=== PATIENT | female | born 1980 | race Caucasian/White ===

== ENCOUNTER 2019-01-02 08:55 | Inpatient (IN) | payer MEDICAID ==
--- NOTE | 2019-01-02 09:34 | ED PDOC ---
HPI: Abdomen Time Seen by Provider: 01/02/19 09:00 Chief Complaint (Nursing): Abdominal Pain Chief Complaint (Provider): Abdominal pain History Per: Patient History/Exam Limitations: no limitations Onset/Duration Of Symptoms: Days Outside of [place] travel?: No Current Symptoms Are (Timing): Still Present Location Of Pain/Discomfort: Diffuse, LLQ Associated Symptoms: Fever, Nausea, Vomiting, Loss Of Appetite. denies: Urinary Symptoms Additional History Per: Patient Additional Complaint(s): 38yo female, otherwise well, comes to ER reporting left lower abdominal pain and discomfort with associated nausea and vomiting. Patient reports subjective fevers as well and states she has been PO intolerant x 3 days. She otherwise denies any dysuria or hematuria, no complaints of back pain as well. Patient has not taken any medications at home to alleviate her symptoms. PMD: Dr. Ivan ABDALLA Abnormal Vaginal Bleeding: No Past Medical History Reviewed: Historical Data, Nursing Documentation, Vital Signs Vital Signs: Last Vital Signs Temp 99.1 F 01/02/19 09:05 Pulse 111 H 01/02/19 09:05 Resp 20 01/02/19 09:05 BP 107/65 01/02/19 09:05 Pulse Ox 94 L 01/02/19 09:05 - Medical History PMH: Anemia (Pt reports) Denies: Chronic Kidney Disease - Surgical History Surgical History: Denies: Back Surgery - Family History Family History: States: Unknown Family Hx - Social History Current smoker - smoking cessation education provided: Yes (1 pack per week) Alcohol: Occasional Drugs: Denies - Immunization History Hx Tetanus Toxoid Vaccination: Yes Hx Influenza Vaccination: Yes Hx Pneumococcal Vaccination: Yes - Home Medications Home Medications: Ambulatory Orders Medication Instructions Recorded No Known Home Med 01/02/19 - Allergies Allergies/Adverse Reactions: Allergies Allergy/AdvReac Type Severity Reaction Status Date / Time No Known Allergies Allergy Verified 01/03/15 21:46 Review of Systems ROS Statement: Except As Marked, All Systems Reviewed And Found Negative Constitutional: Positive for: Fever (subjective) ENT: Positive for: Throat Pain Gastrointestinal: Positive for: Nausea, Vomiting, Abdominal Pain Genitourinary Female: Negative for: Dysuria, Hematuria Musculoskeletal: Negative for: Back Pain Physical Exam - Reviewed Nursing Documentation Reviewed: Yes Vital Signs Reviewed: Yes - Physical Exam Appears: Positive for: No Acute Distress, Uncomfortable Head Exam: Positive for: ATRAUMATIC, NORMAL INSPECTION, NORMOCEPHALIC Skin: Positive for: Normal Color Eye Exam: Positive for: EOMI, PERRL ENT: Positive for: Normal ENT Inspection Neck: Positive for: Supple Cardiovascular/Chest: Positive for: Regular Rate, Rhythm Respiratory: Positive for: Normal Breath Sounds. Negative for: Respiratory Distress Gastrointestinal/Abdominal: Positive for: Bowel Sounds, Soft, Tenderness (mild and diffuse). Negative for: Mass, Distended, Guarding, Rebound Back: Positive for: Normal Inspection. Negative for: L CVA Tenderness, R CVA Tenderness Extremity: Positive for: Normal ROM Neurological/Psych: Positive for: Awake, Alert, Oriented (x 3) - Laboratory Results Result Diagrams: 01/03/19 06:05 01/03/19 06:05 - ECG O2 Sat by Pulse Oximetry: 94 (RA) Medical Decision Making Medical Decision Makinyo female with abdominal discomfort, vomiting, subjective fevers Plan: -- Labs -- UA -- IV Fluids -- CT Abdomen/Pelvis w/ contrast -- Zofran 4mg IV -- Pepcid 20mg IV 1150 Labs reviewed, patient slightly anemic and hypokalemic Urinalysis indicates a UTI 1226 FINDINGS: LOWER THORAX: Right basilar atelectasis. No visible pleural effusion or pneumothorax. Small hiatal hernia/distal esophageal wall thickening. LIVER: Unremarkable. GALLBLADDER AND BILE DUCTS: Unremarkable. PANCREAS: Unremarkable. SPLEEN: Unremarkable. ADRENALS: Unremarkable. KIDNEYS AND URETERS: The kidneys enhance symmetrically. Mild fullness of the left ureter with proximal enhancement; correlate clinically for possibility of infection. Obstructing calculus is not identified. Mild left perinephric stranding/fluid. The right kidney appears unremarkable. BLADDER: The urinary bladder appears unremarkable. REPRODUCTIVE: Uterus is present. APPENDIX: The appendix appears within normal limits of caliber. No secondary signs of acute appendicitis. BOWEL: The stomach is nondistended. The bowel loops appear within normal limits of caliber without evidence of intestinal obstruction. PERITONEUM: No significant free fluid. No definite free air. LYMPH NODES: No bulky lymphadenopathy identified. VASCULATURE: No aortic aneurysm. No atherosclerotic calcification or mural plaque present. BONES: No acute osseous abnormality is detected. OTHER FINDINGS: None. IMPRESSION: Mild fullness of the left ureter with proximal enhancement; correlate clinically for possibility of infection. Obstructing calculus is not identified. Mild left perinephric stranding/fluid. Additional findings as above. 1250 Pyelonephritis vs kidney stones. Will give IV and antibiotics. 1443 Patient reports feeling subjective fever. temp now elevated, fluids and tylenol ordered. vbg ordered. lactate is normal Will admit patient for pyelonephritis. pt aware and agreeable pt to be admitted to medical service. Scribe Attestation: Documented by Teresa Israel, acting as a scribe for Sandra Pinto MD. Provider Scribe Attestation: All medical record entries made by the Scribe were at my direction and personally dictated by me. I have reviewed the chart and agree that the record accurately reflects my personal performance of the history, physical exam, medi naina decision making, and the department course for this patient. I have also personally directed, reviewed, and agree with the discharge instructions and disposition. Disposition - Clinical Impression Clinical Impression: Pyelonephritis - Patient ED Disposition Is Patient to be Admitted: Yes Counseled Patient/Family Regarding: Studies Performed, Diagnosis - Disposition Disposition Time: 14:35 Condition: STABLE
[2019-01-02] MEDS ORDERED: Iohexol 240 (50 ml) PO ONE (09:44)
[2019-01-02] MEDS ORDERED: Sodium Chloride 0.9% 1,000 ML IV STA ×2 (09:45→15:18)
[2019-01-02] MEDS ORDERED: Iohexol 240 (50 ml) ONE (09:52)
[2019-01-02 10:43] LABS: SQUAMOUS EPITHIAL 16 /hpf (0-5); URINE BACTERIA MOD (<OCC); URINE BILIRUBIN NEGATIVE (NEGATIVE); URINE BLOOD MODERATE (NEGATIVE); URINE CLARITY CLOUDY (Clear); URINE COLOR YELLOW (YELLOW); URINE GLUCOSE (UA) NEG (NEGATIVE); URINE LEUKOCYTE ESTERASE MOD Leu/uL (Negative); URINE PROTEIN 100 mg/dL (NEGATIVE); URINE UROBILINOGEN 0.2-1.0 mg/dL (0.2-1.0)
[2019-01-02 10:45] LABS: BASO % 0.2 % (0.0-2.0); EOS % 0.1 % (0.0-4.0); HEMOGLOBIN 10.8 g/dL (12.0-16.0); LYMPH # 1.1 K/uL (1.0-4.3); LYMPH % 12.2 % (20.0-40.0); MEAN CELL VOLUME 79.7 fl (81.0-99.0); MEAN CORPUSCULAR HEMOGLOBIN 26.4 pg (27.0-31.0); MEAN CORPUSCULAR HGB CONC 33.2 g/dL (33.0-37.0); MEAN PLATELET VOLUME 7.8 fl (7.2-11.7); MONO % 10.2 % (0.0-10.0); NEUT # 7.3 K/uL (1.8-7.0); NEUT % 77.3 % (50.0-75.0); NRBC % 0.1 % (0.0-0.0); RBC 4.07 Mil/uL (3.80-5.20); RED CELL DISTRIBUTION WIDTH 16.2 % (11.5-14.5); WHITE BLOOD COUNT 9.4 K/uL (4.8-10.8)
[2019-01-02 10:50] LABS: ALBUMIN 3.9 g/dL (3.5-5.0); ALT/SGPT 22 U/L (9-52); AST/SGOT 26 U/L (14-36); BLOOD UREA NITROGEN 10 mg/dl (7-17); CALCIUM 8.3 mg/dL (8.4-10.2); GFR NON-AFRICAN AMERICAN > 60; LIPASE 65 U/L (23-300)
[2019-01-02] MEDS ORDERED: Potassium Chloride 20 mEq ER Tab PO ONE ×2 (11:50→12:51)
--- NOTE | 2019-01-02 12:29 | CT ---
PROCEDURE: CT Abdomen and Pelvis with oral and IV contrast. HISTORY: llq abd pain COMPARISON: Transvaginal pelvic ultrasound performed 01/03/15 TECHNIQUE: Contiguous axial images of the abdomen and pelvis. Oral and IV contrast was administered. Coronal and Sagittal reformats generated and reviewed. Contrast dose: 95 cc Omnipaque 300 IV Radiation dose: Total exam DLP = 849.44 mGy-cm. This CT exam was performed using one or more of the following dose reduction techniques: Automated exposure control, adjustment of the mA and/or kV according to patient size, and/or use of iterative reconstruction technique. FINDINGS: LOWER THORAX: Right basilar atelectasis. No visible pleural effusion or pneumothorax. Small hiatal hernia/distal esophageal wall thickening. LIVER: Unremarkable. GALLBLADDER AND BILE DUCTS: Unremarkable. PANCREAS: Unremarkable. SPLEEN: Unremarkable. ADRENALS: Unremarkable. KIDNEYS AND URETERS: The kidneys enhance symmetrically. Mild fullness of the left ureter with proximal enhancement; correlate clinically for possibility of infection. Obstructing calculus is not identified. Mild left perinephric stranding/fluid. The right kidney appears unremarkable. BLADDER: The urinary bladder appears unremarkable. REPRODUCTIVE: Uterus is present. APPENDIX: The appendix appears within normal limits of caliber. No secondary signs of acute appendicitis. BOWEL: The stomach is nondistended. The bowel loops appear within normal limits of caliber without evidence of intestinal obstruction. PERITONEUM: No significant free fluid. No definite free air. LYMPH NODES: No bulky lymphadenopathy identified. VASCULATURE: No aortic aneurysm. No atherosclerotic calcification or mural plaque present. BONES: No acute osseous abnormality is detected. OTHER FINDINGS: None. IMPRESSION: Mild fullness of the left ureter with proximal enhancement; correlate clinically for possibility of infection. Obstructing calculus is not identified. Mild left perinephric stranding/fluid. Additional findings as above.
[2019-01-02] MEDS ORDERED: cefTRIAXone (Rocephin) 1 gm Inj ONE (12:51)
[2019-01-02 15:55] LABS: VENOUS BLOOD GAS BASE EXCESS 2.4 mmol/L (0.0-2.0); VENOUS BLOOD GAS PCO2 38 mmHg (40-60); VENOUS BLOOD GAS PO2 24 mm/Hg (30-55); VENOUS BLOOD PH 7.45 (7.32-7.43)
[2019-01-02] MEDS: Sodium Chloride 0.9% 1,000 ML IV SCH (22:14)
[2019-01-03 03:35] VITALS: BMI 29.6
[2019-01-03 06:16] LABS: BASO % 0.2 % (0.0-2.0); EOS % 0.4 % (0.0-4.0); LYMPH # 0.9 K/uL (1.0-4.3); LYMPH % 13.2 % (20.0-40.0); MEAN CELL VOLUME 80.6 fl (81.0-99.0); MEAN CORPUSCULAR HEMOGLOBIN 26.6 pg (27.0-31.0); MEAN PLATELET VOLUME 7.7 fl (7.2-11.7); MONO # 0.8 K/uL (0.0-0.8); MONO % 11.8 % (0.0-10.0); NEUT # 5.3 K/uL (1.8-7.0); NEUT % 74.4 % (50.0-75.0); NRBC % 0.1 % (0.0-0.0); RBC 3.38 Mil/uL (3.80-5.20); RED CELL DISTRIBUTION WIDTH 15.7 % (11.5-14.5); WHITE BLOOD COUNT 7.1 K/uL (4.8-10.8)
[2019-01-03 06:25] LABS: ALT/SGPT 21 U/L (9-52); AST/SGOT 23 U/L (14-36); BLOOD UREA NITROGEN 9 mg/dl (7-17); CALCIUM 7.4 mg/dL (8.4-10.2); GFR NON-AFRICAN AMERICAN > 60; HDL CHOLESTEROL 20 MG/DL (30-70)
[2019-01-03 06:35] LABS: LDL CHOLESTEROL 61 mg/dL (0-129)
[2019-01-03] MEDS ORDERED: Potassium Chloride 20 mEq/15 ml LIQ UD PO ONE (08:40)
--- NOTE | 2019-01-03 09:44 | CP.PCM.HP ---
History of Present Illness - History of Present Illness History of Present Illness: 38 y/o F presented yesterday to ED complaining of left lower back pain, LLQ abdominal pain, nausea and vomiting. Today, pt was seen and examined by bedside with Dr Love. Pt still complains of lower back pain. Pain is described dull, was severe yesterday, radiates to LLQ area. Pt has decreased appetite and reports eating a bits of food and liquid. Today, pt denies nausea, vomiting, chest pain, chills, dysuria, vaginal discharge, vaginal bleeding, rash or peripheral edema. LMP 1 week ago. Menses are regular with normal bleeding. --AT ED, pt presented a fever of 103.[address] Abdomen/Pelvis: Mild fullness of the left ureter with proximal enhancement; correlate clinically for possibility of infection. Obstructing calculus is not identified. Mild left perinephric stranding/fluid. PMD: Dr Love NKDA Medications: none PMHx: denied PSHx: Unspecific spine surgery. SHx: Pt smokes intermittently. Denies alcohol or rec drugs. Present on Admission - Present on Admission Any Indicators Present on Admission: No Review of Systems - Constitutional Constitutional: absent: Excessive Sweating - EENT Nose/Mouth/Throat: absent: Nasal Congestion, Sore Throat, Neck Pain, Neck Mass - Cardiovascular Cardiovascular: absent: Chest Pain, Dyspnea, Edema, Orthopnea, Palpitations - Respiratory Respiratory: absent: Cough, Dyspnea - Gastrointestinal Gastrointestinal: Abdominal Pain. absent: Nausea, Odynophagia, Temesmus, Vomiting - Genitourinary Genitourinary: absent: Dysuria, Hematuria, Nocturia - Reproductive: Female Reproductive:Female: absent: Amenorrhea, Dysmenorrhea, Vaginal Discharge Past Patient History - Past Medical History & Family History Past Medical History?: Yes - Past Social History Alcohol: Occasional Drugs: Denies - CARDIAC Hx Cardiac Disorders: No - PULMONARY Hx Respiratory Disorders: No - NEUROLOGICAL Hx Neurological Disorder: No - HEENT Hx HEENT Problems: No - RENAL Hx Chronic Kidney Disease: No - ENDOCRINE/METABOLIC Hx Endocrine Disorders: No - HEMATOLOGICAL/ONCOLOGICAL Hx Anemia: Yes (Pt reports) - INTEGUMENTARY Hx Dermatological Problems: No - MUSCULOSKELETAL/RHEUMATOLOGICAL Hx Musculoskeletal Disorders: No Hx Falls: No - GASTROINTESTINAL Hx Gastrointestinal Disorders: No - GENITOURINARY/GYNECOLOGICAL Hx Genitourinary Disorders: No - PSYCHIATRIC Hx Psychophysiologic Disorder: No Hx Substance Use: No - SURGICAL HISTORY Hx Surgeries: Yes Other/Comment: d and c in junhe s/p miscarriage - ANESTHESIA Hx Anesthesia: Yes Hx Anesthesia Reactions: No Meds Allergies/Adverse Reactions: Allergies Allergy/AdvReac Type Severity Reaction Status Date / Time No Known Allergies Allergy Verified 01/03/15 21:46 Physical Exam - Constitutional Appears: No Acute Distress - Head Exam Head Exam: ATRAUMATIC, NORMAL INSPECTION - Eye Exam Eye Exam: EOMI, Normal appearance - ENT Exam ENT Exam: Mucous Membranes Moist - Neck Exam Neck exam: Positive for: Full Rom, Normal Inspection. Negative for: Meningismus - Respiratory Exam Respiratory Exam: Clear to Auscultation Bilateral, NORMAL BREATHING PATTERN - Cardiovascular Exam Cardiovascular Exam: REGULAR RHYTHM, +S1, +S2 - GI/Abdominal Exam GI & Abdominal Exam: Normal Bowel Sounds, Soft, Tenderness (LLQ). absent: Distended, Guarding, Rebound - Extremities Exam Extremities exam: Positive for: full ROM, normal inspection. Negative for: calf tenderness, pedal edema - Back Exam Back exam: CVA tenderness (L). absent: CVA tenderness (R) - Neurological Exam Neurological exam: Alert, Oriented x3 Results - Vital Signs Recent Vital Signs: Last Vital Signs Temp 98.0 F 01/03/19 09:13 Pulse 88 01/03/19 09:13 Resp 20 01/03/19 09:13 BP 115/77 01/03/19 09:13 Pulse Ox 94 L 01/03/19 09:13 - Labs Result Diagrams: 01/03/19 06:05 01/03/19 06:05 Labs: Laboratory Results - last 24 hr 01/02/19 01/02/19 01/02/19 10:20 10:20 10:20 WBC 9.4 RBC 4.07 Hgb 10.8 L Hct 32.4 L MCV 79.7 L D MCH 26.4 L MCHC 33.2 RDW 16.2 H Plt Count 229 MPV 7.8 Neut % (Auto) 77.3 H Lymph % (Auto) 12.2 L [place] % (Auto) 10.2 H Eos % (Auto) 0.1 Baso % (Auto) 0.2 Neut # (Auto) 7.3 H Lymph # (Auto) 1.1 [place] # (Auto) 1.0 H Eos # (Auto) 0.0 Baso # (Auto) 0.0 pO2 VBG pH VBG pCO2 VBG HCO3 VBG Total CO2 VBG O2 Sat (Calc) VBG Base Excess VBG Potassium Glucose Lactate FiO2 Sodium 137 Potassium 3.3 L Chloride 98 Carbon Dioxide 26 Anion Gap 16 BUN 10 Creatinine 1.0 Est GFR ( Amer) > 60 Est GFR (Non-Af Amer) > 60 Random Glucose 109 H Calcium 8.3 L Phosphorus Magnesium Total Bilirubin 0.7 AST 26 ALT 22 Alkaline Phosphatase 49 Total Protein 7.6 Albumin 3.9 Globulin 3.7 Albumin/Globulin Ratio 1.0 Triglycerides Cholesterol LDL Cholesterol Direct HDL Cholesterol Lipase 65 Vitamin B12 TSH 3rd Generation Venous Blood Potassium Urine Color Yellow Urine Clarity Cloudy Urine pH 6.0 Ur Specific [place] 1.014 Urine Protein 100 Urine Glucose (UA) Neg Urine Ketones 80 Urine Blood Moderate Urine Nitrate Positive H Urine Bilirubin Negative Urine Urobilinogen 0.2-1.0 Ur Leukocyte Esterase Mod Urine RBC (Auto) 40 H Urine Microscopic WBC 328 H Ur Squamous Epith Cells 16 H Urine Bacteria Mod H 01/02/19 01/03/19 01/03/19 15:49 06:05 06:05 WBC 7.1 RBC 3.38 L Hgb 9.0 L Hct 27.3 L MCV 80.6 L MCH 26.6 L MCHC 33.0 RDW 15.7 H Plt Count 193 MPV 7.7 Neut % (Auto) 74.4 Lymph % (Auto) 13.2 L [place] % (Auto) 11.8 H Eos % (Auto) 0.4 Baso % (Auto) 0.2 Neut # (Auto) 5.3 Lymph # (Auto) 0.9 L [place] # (Auto) 0.8 Eos # (Auto) 0.0 Baso # (Auto) 0.0 pO2 24 L VBG pH 7.45 H VBG pCO2 38 L VBG HCO3 25.4 VBG Total CO2 27.6 VBG O2 Sat (Calc) 64.5 VBG Base Excess 2.4 H VBG Potassium 3.2 L Glucose 105 Lactate 1.2 FiO2 21.0 Sodium 135.0 138 Potassium 3.1 L Chloride 101.0 105 Carbon Dioxide 24 Anion Gap 12 BUN 9 Creatinine 0.8 Est GFR ( Amer) > 60 Est GFR (Non-Af Amer) > 60 Random Glucose 103 Calcium 7.4 L Phosphorus Magnesium Total Bilirubin 0.5 AST 23 ALT 21 Alkaline Phosphatase 42 Total Protein 6.2 L Albumin 3.0 L D Globulin 3.2 Albumin/Globulin Ratio 1.0 Triglycerides 101 Cholesterol 105 LDL Cholesterol Direct 61 HDL Cholesterol 20 L Lipase Vitamin B12 400 TSH 3rd Generation 0.67 Venous Blood Potassium 3.2 L Urine Color Urine Clarity Urine pH Ur Specific [place] Urine Protein Urine Glucose (UA) Urine Ketones Urine Blood Urine Nitrate Urine Bilirubin Urine Urobilinogen Ur Leukocyte Esterase Urine RBC (Auto) Urine Microscopic WBC Ur Squamous Epith Cells Urine Bacteria 01/03/19 08:45 WBC RBC Hgb Hct MCV MCH MCHC RDW Plt Count MPV Neut % (Auto) Lymph % (Auto) [place] % (Auto) Eos % (Auto) Baso % (Auto) Neut # (Auto) Lymph # (Auto) [place] # (Auto) Eos # (Auto) Baso # (Auto) pO2 VBG pH VBG pCO2 VBG HCO3 VBG Total CO2 VBG O2 Sat (Calc) VBG Base Excess VBG Potassium Glucose Lactate FiO2 Sodium Potassium Chloride Carbon Dioxide Anion Gap BUN Creatinine Est GFR ( Amer) Est GFR (Non-Af Amer) Random Glucose Calcium Phosphorus 1.9 L Magnesium 2.2 Total Bilirubin AST ALT Alkaline Phosphatase Total Protein Albumin Globulin Albumin/Globulin Ratio Triglycerides Cholesterol LDL Cholesterol Direct HDL Cholesterol Lipase Vitamin B12 TSH 3rd Generation Venous Blood Potassium Urine Color Urine Clarity Urine pH Ur Specific [place] Urine Protein Urine Glucose (UA) Urine Ketones Urine Blood Urine Nitrate Urine Bilirubin Urine Urobilinogen Ur Leukocyte Esterase Urine RBC (Auto) Urine Microscopic WBC Ur Squamous Epith Cells Urine Bacteria Assessment & Plan - Assessment and Plan (Free Text) Assessment: 38 y/o F with NO pertinent PMHx admitted for evaluation and management of UTI, possible pyelonephritis. --CT Abdomen/Pelvis: Mild fullness of the left ureter with proximal enhancement; correlate clinically for possibility of infection. Obstructing calculus is not identified. Mild left perinephric stranding/fluid. PLAN: >Sepsis due to acute UTI --Fever and tachycardia on presentation, U/A concordant with UTI. --No leukocytosis --Renal US ordered to r/o pyelonephritis. --IV Toradol for pain management. --Continue with daily IV Rocephin --F/U Blood and Urine Cx. --Regular diet. >Nausea/Vomiting --No nausea/vomiting this morning. --PRN Zofran --IVP Famotidine daily. >DVT Prophylaxis --SCD's for now. --Ambulation encouraged. --At low risk for DVT. Case discussed with Dr Ivan Dawkins PGY-2 - Date & Time Date: 01/03/19 Time: 09:45
[2019-01-03] MEDS: Sodium Chloride 0.9% 1,000 ML IV SCH (11:35)
--- NOTE | 2019-01-03 16:04 | US ---
Date of service: 01/03/2019 PROCEDURE: Ultrasound of the Kidneys HISTORY: R/O pyelonephritis COMPARISON: None available. TECHNIQUE: Sonogram of the kidneys. FINDINGS: RIGHT KIDNEY: Measures: 12.1 cm. Normal in size, contour and echogenicity. No stone, solid mass lesion or hydronephrosis visualized. LEFT KIDNEY: Measures: 11.6 cm. Normal in size, contour and echogenicity. No stone, solid mass lesion or hydronephrosis visualized. OTHER FINDINGS: None. IMPRESSION: Unremarkable renal sonogram.
[2019-01-04 06:48] LABS: HEMOGLOBIN 9.3 g/dL (12.0-16.0); MEAN CELL VOLUME 80.2 fl (81.0-99.0); MEAN CORPUSCULAR HEMOGLOBIN 25.7 pg (27.0-31.0); RBC 3.61 Mil/uL (3.80-5.20); RED CELL DISTRIBUTION WIDTH 16.4 % (11.5-14.5); WHITE BLOOD COUNT 4.6 K/uL (4.8-10.8)
[2019-01-04 07:34] LABS: ALBUMIN 3.1 g/dL (3.5-5.0); ALT/SGPT 24 U/L (9-52); AST/SGOT 26 U/L (14-36); BLOOD UREA NITROGEN 7 mg/dl (7-17); CALCIUM 7.9 mg/dL (8.4-10.2); GFR NON-AFRICAN AMERICAN > 60
[2019-01-04] MEDS ORDERED: Potassium Chloride 20 mEq/15 ml LIQ UD PO ONE ×2 (08:20→16:10)
[2019-01-04] MEDS ORDERED: Potassium Chloride 20 mEq ER Tab PO ONE ×2 (08:22→17:08)
[2019-01-04] MEDS ORDERED: Potassium Chloride 20 mEq 100 ML IVPB ONE ×2 (08:24→16:18)
[2019-01-04] MEDS: Potassium & Sodium Phosphate PO SCH ×2 (09:31→16:00)
[2019-01-04] MEDS: Potassium Chloride 20 mEq 100 ML IVPB SCH ×2 (11:18→13:25)
--- NOTE | 2019-01-04 12:28 | CP.PCM.PN ---
<Bear Dawkins - Last Filed: 01/04/19 12:26> Subjective - Date & Time of Evaluation Date of Evaluation: 01/04/19 Time of Evaluation: 07:10 - Subjective Subjective: 38 y/o F was seen and examined by bedside with Dr Love. Pt reports that left lower back pain is better, denies nausea or vomiting; however, ot reports lack of appetite and not eating much. Pt had a fever overnight. --Unremarkable renal US. Objective - Vital Signs/Intake and Output Vital Signs (last 24 hours): Temp Pulse Resp BP Pulse Ox 98.4 F 74 20 105/70 93 L 01/04/19 08:22 01/04/19 08:22 01/04/19 08:22 01/04/19 08:22 01/04/19 08:22 - Medications Medications: Current Medications Acetaminophen (Tylenol 325mg Tab) 650 mg PO Q6 PRN PRN Reason: Fever >100.4 F Last Admin: 01/03/19 18:05 Dose: 650 mg Acetaminophen (Tylenol 325mg Tab) 650 mg PO Q6 PRN PRN Reason: Pain, Mild (1-3) Last Admin: 01/04/19 05:58 Dose: 650 mg Famotidine (Pepcid) 20 mg IVP DAILY [facility] Last Admin: 01/03/19 11:31 Dose: 20 mg Ceftriaxone Sodium 1 gm/ (Sodium Chloride) 100 mls @ 100 mls/hr IVPB DAILY [facility]; Protocol Last Admin: 01/04/19 08:40 Dose: 100 mls/hr Potassium Chloride (Potassium Chloride 20 Meq/100 Ml) 100 mls @ 50 mls/hr IVPB Q2 [facility] Stop: 01/04/19 13:59 Last Admin: 01/04/19 11:18 Dose: 50 mls/hr Ketorolac Tromethamine (Toradol) 30 mg IVP Q6 PRN PRN Reason: Pain, severe (8-10) Ondansetron HCl (Zofran Inj) 4 mg IVP TID PRN PRN Reason: Nausea/Vomiting Last Admin: 01/03/19 11:38 Dose: 4 mg Potassium Phos/Sodium Phos (Neutra-Phos) 1 pkt PO BID [facility] Last Admin: 01/04/19 09:31 Dose: 1 pkt - Labs Labs: 01/04/19 06:10 01/04/19 06:10 - Constitutional Appears: No Acute Distress - Head Exam Head Exam: ATRAUMATIC, NORMAL INSPECTION - Eye Exam Eye Exam: EOMI, Normal appearance - ENT Exam ENT Exam: Mucous Membranes Moist - Neck Exam Neck Exam: Full ROM, Normal Inspection. absent: Meningismus - Respiratory Exam Respiratory Exam: NORMAL BREATHING PATTERN. absent: Rhonchi, Wheezes, Respiratory Distress, Stridor - Cardiovascular Exam Cardiovascular Exam: REGULAR RHYTHM, +S1, +S2 - GI/Abdominal Exam GI & Abdominal Exam: Soft, Normal Bowel Sounds. absent: Guarding, Rigid, Tenderness - Extremities Exam Extremities Exam: Full ROM, Normal Inspection. absent: Calf Tenderness, Pedal Edema - Back Exam Back Exam: CVA tenderness (L) (very mild). absent: CVA tenderness (R) - Neurological Exam Neurological Exam: Alert, Awake, Oriented x3 Assessment and Plan - Assessment and Plan (Free Text) Assessment: 38 y/o F with NO pertinent PMHx admitted for evaluation and management of UTI, possible pyelonephritis. --CT Abdomen/Pelvis: Mild fullness of the left ureter with proximal enhancement; correlate clinically for possibility of infection. Obstructing calculus is not identified. Mild left perinephric stranding/fluid. PLAN: >Sepsis due to acute UTI --Fever and tachycardia on presentation, U/A concordant with UTI. --No leukocytosis --Unremarkable renal US. --Continue with daily IV Rocephin --Urine Cx: gram neg deangelo. --ID consult, Dr Stephen. --Regular diet. >Hypokalemia --Serum K+ 2.9-low --Likely due to poot PO intake, lack of appetite. --PO and IV KCl supplemented. --Repeat serum potassium in the afternoon. >Microcytic anemia --Unknown etiology, possibly iron deficiency. --Normal menses and blood loss. --F/U bloodwork. >Nausea/Vomiting --Improved --No enough PO intake for >3 days, pt encouraged to eat. >DVT Prophylaxis --SCD's for now. --Ambulation encouraged. --At low risk for DVT. Case discussed with Dr Ivan Dawkins PGY-2 <Tye Love - Last Filed: 01/08/19 11:39> Objective - Vital Signs/Intake and Output Vital Signs (last 24 hours): Temp Pulse Resp BP Pulse Ox 98.0 F 78 19 112/79 93 L 01/06/19 07:59 01/06/19 07:59 01/06/19 07:59 01/06/19 07:59 01/06/19 07:59 - Labs Labs: 01/06/19 05:01 01/06/19 05:01 Assessment and Plan - Assessment and Plan (Free Text) Assessment: Patient was personally seen and examined by me in rounds with residents. Available labs and diagnostic data reviewed. Case, Patient's condition and management plan discussed with residents in rounds. Agree with resident's progress note. Plan: As ordered.
--- NOTE | 2019-01-04 18:38 | CP.PCM.PN ---
Subjective - Date & Time of Evaluation Date of Evaluation: 01/04/19 Time of Evaluation: 18:36 - Subjective Subjective: I D NOTE PATIENT EXAMINED ,HISTORY TAKEN , EMR REVIEWED HAVE INCREASED DOSE OF ROCEPHEN TO 2GM DAILY FULL CONSULT DICTATED Objective - Vital Signs/Intake and Output Vital Signs (last 24 hours): Temp Pulse Resp BP Pulse Ox 100.4 F H 89 18 111/77 94 L 01/04/19 16:06 01/04/19 16:06 01/04/19 16:06 01/04/19 16:06 01/04/19 16:06 - Medications Medications: Current Medications Acetaminophen (Tylenol 325mg Tab) 650 mg PO Q6 PRN PRN Reason: Fever >100.4 F Last Admin: 01/04/19 15:58 Dose: 650 mg Acetaminophen (Tylenol 325mg Tab) 650 mg PO Q6 PRN PRN Reason: Pain, Mild (1-3) Last Admin: 01/04/19 05:58 Dose: 650 mg Famotidine (Pepcid) 20 mg IVP DAILY [facility] Last Admin: 01/04/19 13:24 Dose: 20 mg Ceftriaxone Sodium 2 gm/ (Sodium Chloride) 100 mls @ 100 mls/hr IVPB DAILY [facility]IN[facility]; Protocol Ketorolac Tromethamine (Toradol) 30 mg IVP Q6 PRN PRN Reason: Pain, severe (8-10) Ondansetron HCl (Zofran Inj) 4 mg IVP TID PRN PRN Reason: Nausea/Vomiting Last Admin: 01/03/19 11:38 Dose: 4 mg Potassium Phos/Sodium Phos (Neutra-Phos) 1 pkt PO BID [facility] Last Admin: 01/04/19 16:00 Dose: 1 pkt - Labs Labs: 01/04/19 06:10 01/04/19 14:12
--- NOTE | 2019-01-05 04:49 | CON ---
DATE: 01/04/2019 The patient is a 38-year-old female who began to have left lower quadrant abdominal pain and discomfort since Wednesday prior to admission. She only had pain for the first two days, but suddenly on Wednesday, she had something to eat and began vomiting and then developed fever and chills. She has not been able to eat over the past three days. She does not give any history of hematuria or dysuria, but she does have left lower quadrant and back pain. She said she did not take any medications at home. The patient is a pleasant, alert, cooperative female who states she felt better today since she received the dose of antibiotics. The urine culture shows E. coli sensitive to presently given ceftriaxone with MEKA's of less than 1. It is also sensitive to meropenem, Cipro, ertapenem, gentamicin as well as piperacillin. Her white count is today 4.6 which is down from 9.4, hemoglobin 9.3 down from 10.8. She has a mild left shift. Liver function tests are within normal limits as well as her GFR being greater than 60 and a creatinine being 0.7. States she has not had any diarrhea. At present time, the ultrasound is within normal limit and the abdominal ultrasound shows mild fullness of the left ureter with proximal enhancement, correlate clinically for possibility of infection. Obstructing cellulitis is not identified. Mild left perinephric stranding. At present time, we would consider there is a possibility of pyelonephritis or possibly having passed a recent stone, although she gives no history of dysuria or blood. I have increased the Rocephin to 2 g IV piggyback daily. We will see how she responds to it over the next 24 hours in regards to continued IV antibiotic therapy. Sergo Stephen MD
[2019-01-05 07:01] LABS: HEMOGLOBIN 9.7 g/dL (12.0-16.0); MEAN CELL VOLUME 79.6 fl (81.0-99.0); MEAN CORPUSCULAR HEMOGLOBIN 25.8 pg (27.0-31.0); MEAN CORPUSCULAR HGB CONC 32.4 g/dL (33.0-37.0); RBC 3.77 Mil/uL (3.80-5.20); WHITE BLOOD COUNT 4.7 K/uL (4.8-10.8)
[2019-01-05 07:08] LABS: BLOOD UREA NITROGEN 8 mg/dl (7-17); CALCIUM 8.6 mg/dL (8.4-10.2); GFR NON-AFRICAN AMERICAN > 60
[2019-01-05] MEDS ORDERED: Potassium Chloride 20 mEq ER Tab PO ONE (07:31)
--- NOTE | 2019-01-05 07:39 | CP.PCM.PN ---
<Bear Dawkins - Last Filed: 01/05/19 07:36> Subjective - Date & Time of Evaluation Date of Evaluation: 01/05/19 Time of Evaluation: 07:10 - Subjective Subjective: 38 y/o F was vaughn nd examined by bedside. Pt reports feeling well, pt was able to eat more yesterday. Back pain is improving. Pt had a fever on 100.4 F overnight. Pt denies headache, fever, chills, chest pain, SOB, nausea, vomiting, rash or peripheral edema. Objective - Vital Signs/Intake and Output Vital Signs (last 24 hours): Temp Pulse Resp BP Pulse Ox 99.1 F 72 18 94/66 L 99 01/05/19 00:09 01/05/19 00:09 01/05/19 00:09 01/05/19 00:09 01/05/19 00:09 - Medications Medications: Current Medications Acetaminophen (Tylenol 325mg Tab) 650 mg PO Q6 PRN PRN Reason: Fever >100.4 F Last Admin: 01/04/19 15:58 Dose: 650 mg Acetaminophen (Tylenol 325mg Tab) 650 mg PO Q6 PRN PRN Reason: Pain, Mild (1-3) Last Admin: 01/04/19 05:58 Dose: 650 mg Famotidine (Pepcid) 20 mg IVP DAILY [facility] Last Admin: 01/04/19 13:24 Dose: 20 mg Ceftriaxone Sodium 2 gm/ (Sodium Chloride) 100 mls @ 100 mls/hr IVPB DAILY [facility]IN[facility]; Protocol Ketorolac Tromethamine (Toradol) 30 mg IVP Q6 PRN PRN Reason: Pain, severe (8-10) Ondansetron HCl (Zofran Inj) 4 mg IVP TID PRN PRN Reason: Nausea/Vomiting Last Admin: 01/03/19 11:38 Dose: 4 mg Potassium Phos/Sodium Phos (Neutra-Phos) 1 pkt PO BID [facility] Last Admin: 01/04/19 16:00 Dose: 1 pkt - Labs Labs: 01/05/19 06:30 01/05/19 06:30 - Constitutional Appears: Well, No Acute Distress - Head Exam Head Exam: ATRAUMATIC, NORMAL INSPECTION - Eye Exam Eye Exam: EOMI, PERRL - ENT Exam ENT Exam: Mucous Membranes Moist - Neck Exam Neck Exam: Full ROM, Normal Inspection - Respiratory Exam Respiratory Exam: Clear to Ausculation Bilateral, NORMAL BREATHING PATTERN - Cardiovascular Exam Cardiovascular Exam: REGULAR RHYTHM, +S1, +S2 - GI/Abdominal Exam GI & Abdominal Exam: Soft. absent: Guarding, Rigid, Tenderness - Extremities Exam Extremities Exam: Full ROM, Normal Inspection. absent: Calf Tenderness, Pedal Edema - Back Exam Back Exam: Full ROM, paraspinal tenderness (b/l thoracic level. ). absent: CVA tenderness (L), CVA tenderness (R) - Neurological Exam Neurological Exam: Alert, Awake, Oriented x3 - Psychiatric Exam Psychiatric exam: Normal Affect, Normal Mood Assessment and Plan - Assessment and Plan (Free Text) Assessment: 38 y/o F with NO pertinent PMHx admitted for evaluation and management of UTI, possible pyelonephritis. --CT Abdomen/Pelvis: Mild fullness of the left ureter with proximal enhancement; correlate clinically for possibility of infection. Obstructing calculus is not identified. Mild left perinephric stranding/fluid. --Unremarkable renal US. PLAN: >Sepsis due to acute UTI --Fever overnight. --No leukocytosis. --ID on board, Dr Stephen --IV Rocephin dose increased to 2gr. --Urine Cx: E. Coli, sensitive to Rocephin. >Hypokalemia --Serum K+ 3.5-low --Mag[place] level WNL. --PO KCl ordered --F/U BMP >Microcytic anemia --Unknown etiology, possibly iron deficiency. --Normal menses and blood loss. --F/U bloodwork. >Nausea/Vomiting --Resolved. >DVT Prophylaxis --SCD's for now. --Ambulation encouraged. --At low risk for DVT. Case discussed with Dr Ivan Dawkins PGY-2 <Tye Love - Last Filed: 01/08/19 11:38> Objective - Vital Signs/Intake and Output Vital Signs (last 24 hours): Temp Pulse Resp BP Pulse Ox 98.0 F 78 19 112/79 93 L 01/06/19 07:59 01/06/19 07:59 01/06/19 07:59 01/06/19 07:59 01/06/19 07:59 - Labs Labs: 01/06/19 05:01 01/06/19 05:01 Assessment and Plan - Assessment and Plan (Free Text) Assessment: Patient was personally seen and examined by me in rounds with residents. Available labs and diagnostic data reviewed. Case, Patient's condition and management plan discussed with residents in rounds. Agree with resident's progress note. Plan: As ordered.
[2019-01-05 07:43] LABS: FERRITIN 36.2 ng/Ml (6.24-137.0)
[2019-01-05] MEDS: Potassium & Sodium Phosphate PO SCH ×2 (08:02→16:20)
[2019-01-05] MEDS: cefTRIAXone 2 GM in Sodium Chloride 0.9% 100 ML IVPB SCH (08:04)
[2019-01-05 10:52] LABS: IRON 17 ug/dL (37-170)
[2019-01-05 11:01] LABS: % IRON SATURATION 7 % (20-55); TOTAL IRON BINDING CAPACITY 265 ug/dL (250-450)
[2019-01-06 06:22] LABS: HEMOGLOBIN 9.7 g/dL (12.0-16.0); MEAN CELL VOLUME 79.5 fl (81.0-99.0); MEAN CORPUSCULAR HGB CONC 32.6 g/dL (33.0-37.0); RBC 3.74 Mil/uL (3.80-5.20); RED CELL DISTRIBUTION WIDTH 16.7 % (11.5-14.5); WHITE BLOOD COUNT 5.6 K/uL (4.8-10.8)
[2019-01-06 06:50] LABS: BLOOD UREA NITROGEN 11 mg/dl (7-17); CALCIUM 8.6 mg/dL (8.4-10.2); GFR NON-AFRICAN AMERICAN > 60
[2019-01-06 07:59] VITALS: BP 112/79; PULSE 78; RESP 19; TEMP 98; O2SAT 93
[2019-01-06] MEDS ORDERED: Potassium Chloride 20 mEq ER Tab PO ONE (08:32)
[2019-01-06] MEDS: Potassium & Sodium Phosphate PO SCH (08:50)
[2019-01-06] MEDS: cefTRIAXone 2 GM in Sodium Chloride 0.9% 100 ML IVPB SCH (08:51)
[2019-01-06] MEDS ORDERED: Potassium Chloride 20 mEq 100 ML IVPB ONE (10:00)
--- NOTE | 2019-01-06 13:31 | CP.PCM.DIS ---
Provider - Provider Date of Admission: 01/02/19 14:43 Attending physician: Tye Love MD Primary care physician: Daniel Vega Consults: 01/04/19 08:17 Infectious Disease Consult Routine Comment: Consulting Provider: Sergo Stephen Consulting Physician: Sergo Stephen Reason for Consult: Fever, uti Time Spent in preparation of Discharge (in minutes): 30 Diagnosis - Discharge Diagnosis (1) Urinary tract infection Status: Acute (2) Hypokalemia Status: Acute Hospital Course - Lab Results Lab Results: Micro Results 01/02/19 13:35 Blood-Venous Blood Culture - Preliminary NO GROWTH AFTER 3 DAYS 01/02/19 14:15 Blood-Venous Blood Culture - Preliminary NO GROWTH AFTER 3 DAYS 01/02/19 10:20 Urine,Clean Catch Urine Culture - Final Escherichia Coli Most Recent Lab Values WBC 5.6 K/uL (4.8-10.8) 01/06/19 05:01 RBC 3.74 Mil/uL (3.80-5.20) L 01/06/19 05:01 Hgb 9.7 g/dL (12.0-16.0) L 01/06/19 05:01 Hct 29.7 % (34.0-47.0) L 01/06/19 05:01 MCV 79.5 fl (81.0-99.0) L 01/06/19 05:01 MCH 26.0 pg (27.0-31.0) L 01/06/19 05:01 MCHC 32.6 g/dL (33.0-37.0) L 01/06/19 05:01 RDW 16.7 % (11.5-14.5) H 01/06/19 05:01 Plt Count 304 K/uL (130-400) 01/06/19 05:01 MPV 7.7 fl (7.2-11.7) 01/03/19 06:05 Neut % (Auto) 74.4 % (50.0-75.0) 01/03/19 06:05 Lymph % (Auto) 13.2 % (20.0-40.0) L 01/03/19 06:05 [place] % (Auto) 11.8 % (0.0-10.0) H 01/03/19 06:05 Eos % (Auto) 0.4 % (0.0-4.0) 01/03/19 06:05 Baso % (Auto) 0.2 % (0.0-2.0) 01/03/19 06:05 Neut # (Auto) 5.3 K/uL (1.8-7.0) 01/03/19 06:05 Lymph # (Auto) 0.9 K/uL (1.0-4.3) L 01/03/19 06:05 [place] # (Auto) 0.8 K/uL (0.0-0.8) 01/03/19 06:05 Eos # (Auto) 0.0 K/uL (0.0-0.7) 01/03/19 06:05 Baso # (Auto) 0.0 K/uL (0.0-0.2) 01/03/19 06:05 Retic Count 0.9 % (0.5-1.5) 01/05/19 06:30 pO2 24 mm/Hg (30-55) L 01/02/19 15:49 VBG pH 7.45 (7.32-7.43) H 01/02/19 15:49 VBG pCO2 38 mmHg (40-60) L 01/02/19 15:49 VBG HCO3 25.4 mmol/L 01/02/19 15:49 VBG Total CO2 27.6 mmol/L (22-28) 01/02/19 15:49 VBG O2 Sat (Calc) 64.5 % (40-65) 01/02/19 15:49 VBG Base Excess 2.4 mmol/L (0.0-2.0) H 01/02/19 15:49 VBG Potassium 3.2 mmol/L (3.6-5.2) L 01/02/19 15:49 Sodium 135.0 mmol/L (132-148) 01/02/19 15:49 Chloride 101.0 mmol/L (98-107) 01/02/19 15:49 Glucose 105 mg/dL (65-105) 01/02/19 15:49 Lactate 1.2 mmol/L (0.7-2.1) 01/02/19 15:49 FiO2 21.0 % 01/02/19 15:49 Sodium 136 mmol/l (132-148) 01/06/19 05:01 Potassium 3.4 MMOL/L (3.6-5.0) L 01/06/19 05:01 Chloride 103 mmol/L (98-107) 01/06/19 05:01 Carbon Dioxide 27 mmol/L (22-30) 01/06/19 05:01 Anion Gap 9 (10-20) L 01/06/19 05:01 BUN 11 mg/dl (7-17) 01/06/19 05:01 Creatinine 0.7 mg/dl (0.7-1.2) 01/06/19 05:01 Est GFR ( Amer) > 60 01/06/19 05:01 Est GFR (Non-Af Amer) > 60 01/06/19 05:01 Random Glucose 102 mg/dL (65-105) 01/06/19 05:01 Calcium 8.6 mg/dL (8.4-10.2) 01/06/19 05:01 Phosphorus 2.7 mg/dl (2.5-4.5) 01/05/19 06:30 Magnesium 2.1 MG/DL (1.6-2.3) 01/05/19 06:30 Iron 17 ug/dL (37-170) L 01/05/19 08:45 TIBC 265 ug/dL (250-450) 01/05/19 08:45 % Saturation 7 % (20-55) L 01/05/19 08:45 Ferritin 36.2 ng/Ml (6.24-137.0) 01/05/19 06:30 Total Bilirubin 0.2 mg/dl (0.2-1.3) 01/04/19 06:10 AST 26 U/L (14-36) 01/04/19 06:10 ALT 24 U/L (9-52) 01/04/19 06:10 Alkaline Phosphatase 45 U/L (38-126) 01/04/19 06:10 Total Protein 6.3 G/DL (6.3-8.2) 01/04/19 06:10 Albumin 3.1 g/dL (3.5-5.0) L 01/04/19 06:10 Globulin 3.2 gm/dL (2.2-3.9) 01/04/19 06:10 Albumin/Globulin Ratio 1.0 (1.0-2.1) 01/04/19 06:10 Triglycerides 101 mg/DL (0-149) 01/03/19 06:05 Cholesterol 105 mg/dL (0-199) 01/03/19 06:05 LDL Cholesterol Direct 61 mg/dL (0-129) 01/03/19 06:05 HDL Cholesterol 20 MG/DL (30-70) L 01/03/19 06:05 Lipase 65 U/L (23-300) 01/02/19 10:20 Vitamin B12 400 pg/mL (239-931) 01/03/19 06:05 TSH 3rd Generation 0.67 mIU/ML (0.46-4.68) 01/03/19 06:05 Venous Blood Potassium 3.2 mmol/L (3.6-5.2) L 01/02/19 15:49 Urine Color Yellow (YELLOW) 01/02/19 10:20 Urine Clarity Cloudy (Clear) 01/02/19 10:20 Urine pH 6.0 (5.0-8.0) 01/02/19 10:20 Ur Specific [place] 1.014 (1.003-1.030) 01/02/19 10:20 Urine Protein 100 mg/dL (NEGATIVE) 01/02/19 10:20 Urine Glucose (UA) Neg mg/dL (NEGATIVE) 01/02/19 10:20 Urine Ketones 80 mg/dL (NEGATIVE) 01/02/19 10:20 Urine Blood Moderate (NEGATIVE) 01/02/19 10:20 Urine Nitrate Positive (NEGATIVE) H 01/02/19 10:20 Urine Bilirubin Negative (NEGATIVE) 01/02/19 10:20 Urine Urobilinogen 0.2-1.0 mg/dL (0.2-1.0) 01/02/19 10:20 Ur Leukocyte Esterase Mod Marc/uL (Negative) 01/02/19 10:20 Urine RBC (Auto) 40 /hpf (0-3) H 01/02/19 10:20 Urine Microscopic WBC 328 /hpf (0-5) H 01/02/19 10:20 Ur Squamous Epith Cells 16 /hpf (0-5) H 01/02/19 10:20 Urine Bacteria Mod (<OCC) H 01/02/19 10:20 - Hospital Course Hospital Course: 38 y/o F with NO pertinent PMHx admitted on 01/03/19 for evaluation and management of UTI, possible pyelonephritis. CT Abdomen/Pelvis: Mild fullness of the left ureter with proximal enhancement; correlate clinically for possibility of infection. Obstructing calculus is not identified. Mild left perinephric stranding/fluid. Unremarkable renal US. Urine Cx: E. Coli. Hypokalemia improved. Pt remained afebrile overnight, feeling well, no more back pain. Pt stable, tolerating PO, will discharged home with PO Ciprofloxacin and PO K-dur. - Date & Time of H&P Date of H&P: 01/03/19 Time of H&P: 09:44 Discharge Exam - Head Exam Head Exam: ATRAUMATIC, NORMAL INSPECTION - Eye Exam Eye Exam: EOMI, Normal appearance - ENT Exam ENT Exam: Mucous Membranes Moist - Neck Exam Neck exam: Full Rom, Normal Inspection - Respiratory Exam Respiratory Exam: Clear to PA & Lateral, NORMAL BREATHING PATTERN - Cardiovascular Exam Cardiovascular Exam: REGULAR RHYTHM, +S1, +S2 - GI/Abdominal Exam GI & Abdominal Exam: Normal Bowel Sounds, Soft. absent: Distended, Guarding, Tenderness - Extremities Exam Extremities exam: full ROM, normal inspection - Back Exam Back exam: absent: CVA tenderness (L), CVA tenderness (R) - Neurological Exam Neurological exam: Alert, Oriented x3 - Psychiatric Exam Psychiatric exam: Normal Affect, Normal Mood Discharge Plan - Discharge Medications Prescriptions: Ciprofloxacin [Cipro] 500 mg PO BID 7 Days #14 tab Potassium Chloride [K-Dur 20] 20 meq PO DAILY 5 Days #5 tab - Follow Up Plan Condition: STABLE Disposition: HOME/ ROUTINE Instructions: Urinary Tract Infection, Adult (DC), E. coli Infection (DC), Kidney Infection (DC) Additional Instructions: follow up with primary MD 1 week Referrals: Tye Love MD [Staff Provider] - Sergo Stephen MD [Medical Doctor] -
== END 2019-01-06 14:37 | disposition home or self-care (01) | DRG 901 ==
LOC: H.ER 08:55 → H.ERHOLD 14:43 → H.MEDSURG1 20:56
PROVIDERS: ADMIT Internal Medicine; ATTEND Internal Medicine
DX: A41.9 Sepsis, unspecified organism (principal); N39.0 Urinary tract infection, site not specified; E87.6 Hypokalemia; B96.20 Unspecified Escherichia coli [E. coli] as the cause of diseases classified elsewhere; D50.8 Other iron deficiency anemias; Z16.29 Resistance to other single specified antibiotic; R11.2 Nausea with vomiting, unspecified; F17.210 Nicotine dependence, cigarettes, uncomplicated